=== PATIENT | male | born 1950 | race Caucasian/White ===

== ENCOUNTER 2019-10-30 06:29 | Emergency (ER) | payer MEDICARE, BC, OTHER ==
[~2019-10-30] VITALS: Ht 180.3 cm; Wt 97.4 kg
[2019-10-30 06:29] VITALS: BP 160/79
[~2019-10-30 06:29] MED LIST: FLOM0.4C39 PO; NORCOTAB PO; ONDA-1 PO
[2019-10-30] MEDS ORDERED: LIDOCAINE 1% MDV 20ML VIAL INFIL ONE (07:00)
--- NOTE | 2019-10-30 07:45 | REP ---
Clinical: Trauma. Foreign body. Technique: AP, lateral, bilateral oblique views of the right fourth digit. Findings: Osseous structures, joint spaces, and surrounding soft tissues appear normal. No obvious foreign body material identified. No obvious acute fracture or dislocation. Impression: No obvious foreign body. Electronically Signed by Medhat Myers MD 10/30/2019 07:36 A
== END 2019-10-30 08:07 | disposition home or self-care (01) ==
LOC: M ED 06:29
DX: S61.214A Laceration without foreign body of right ring finger without damage to nail, initial encounter (principal); W25.XXXA Contact with sharp glass, initial encounter; Y92.090 Kitchen in other non-institutional residence as the place of occurrence of the external cause; Y93.G1 Activity, food preparation and clean up; Y99.8 Other external cause status; I49.3 Ventricular premature depolarization; Z88.0 Allergy status to penicillin; Z91.041 Radiographic dye allergy status

== ENCOUNTER 2019-12-04 02:49 | Emergency (ER) | payer MEDICARE, BC, OTHER ==
[~2019-12-04] VITALS: Ht 180.3 cm; Wt 93.6 kg
[2019-12-04] MEDS ORDERED: ONDANSETRON 4MG/2ML VIAL IV ONE (03:15)
[2019-12-04] MEDS ORDERED: NS 1,000 ML IV ONE (03:30)
[2019-12-04] MEDS: KETOROLAC 30 MG/ML 1ML VIAL IV ONE ×4 (03:32→03:34)
[2019-12-04 03:37] LABS: BASO # 0.1 10^3/uL (0.0-0.2); BASO % 0.6 % (0.0-1.0); EOS # 0.4 10^3/uL (0.0-0.5); EOS % 4.7 % (0.0-3.0); HEMATOCRIT 46.9 % (42.0-52.0); HEMOGLOBIN 15.3 g/dl (13.5-17.5); LYMPH % 58.1 % (24.0-44.0); MEAN CORPUSCULAR HEMOGLOBIN 29.3 pg (27.0-33.0); MEAN CORPUSCULAR HGB CONC 32.6 g/dl (32.0-36.5); MEAN CORPUSCULAR VOLUME 89.8 fl (80.0-96.0); MONO # 0.8 10^3/uL (0.0-0.8); MONO % 8.8 % (0.0-5.0); NEUTROPHILS # 2.4 10^3/uL (1.5-8.5); NEUTROPHILS % 27.7 % (36.0-66.0); PLATELET COUNT, AUTOMATED 185 10^3/uL (150-450); RED BLOOD COUNT 5.22 10^6/uL (4.30-6.10); WHITE BLOOD COUNT 8.6 10^3/uL (4.0-10.0)
[2019-12-04] MEDS ORDERED: TAMSULOSIN 0.4 MG CAP PO ONE (03:45)
[2019-12-04] MEDS ORDERED: FLOM0.4C39 PO (03:53)
[2019-12-04] MEDS ORDERED: KETO10TAB PO (03:53)
--- NOTE | 2019-12-04 03:53 | REPVR ---
PROCEDURE INFORMATION: Exam: CT Abdomen And Pelvis Without Contrast Exam date and time: 12/04/2019 3:15 AM Age: 69 years old Clinical indication: Abdominal pain; Flank; Right; Additional info: Flank pain TECHNIQUE: Imaging protocol: Computed tomography of the abdomen and pelvis without contrast. Radiation optimization: All CT scans at this facility use at least one of these dose optimization techniques: automated exposure control; mA and/or kV adjustment per patient size (includes targeted exams where dose is matched to clinical indication); or iterative reconstruction. COMPARISON: RENAL US 02/24/2014 1:06 PM FINDINGS: Lungs: Dependent and compressive atelectasis at the bilateral lung bases. Atelectasis or scarring in the right lower lobe and lingula. Mediastinal space: Large hiatal hernia. Liver: Normal. No mass. Gallbladder and bile ducts: Normal. No calcified stones. No ductal dilation. Pancreas: Normal. No ductal dilation. Spleen: Normal. No splenomegaly. Adrenals: Normal. No mass. Kidneys and ureters: Mild right hydroureteronephrosis to the level a punctate 2 mm calculus at the right ureterovesicular junction. Nonobstructive left nephrolithiasis. Stomach and bowel: Left inguinal hernia containing nonobstructed loop of proximal sigmoid colon. Appendix: No evidence of appendicitis. Intraperitoneal space: Unremarkable. No free air. No significant fluid collection. Vasculature: Atherosclerotic disease of the abdominal aorta. Lymph nodes: Unremarkable. No enlarged lymph nodes. Bladder: Unremarkable as visualized. Reproductive: Enlarged prostate. Bones/joints: Multilevel degenerative disease and facet hypertrophy of the lumbar spine. Mild levoscoliosis. Soft tissues: Unremarkable. IMPRESSION: Mild right hydroureteronephrosis to the level a punctate 2 mm calculus at the right ureterovesicular junction. Electronically signed by: Kin Clinton On 12/04/2019 03:53:33 AM
[2019-12-04 03:59] LABS: ALBUMIN 3.7 GM/DL (3.2-5.2); ALT/SGPT 33 U/L (12-78); BILIRUBIN,DIRECT 0.1 MG/DL (0.0-0.2); BILIRUBIN,TOTAL 0.5 MG/DL (0.2-1.0); BLOOD UREA NITROGEN 15 MG/DL (7-18); CALCIUM LEVEL 8.8 MG/DL (8.8-10.2); CARBON DIOXIDE LEVEL 29 MEQ/L (21-32); CHLORIDE LEVEL 107 MEQ/L (98-107); CREATININE FOR GFR 1.16 MG/DL (0.70-1.30); GLOMERULAR FILTRATION RATE > 60.0 (>49); GLUCOSE, FASTING 107 MG/DL (70-100); LIPASE 175 U/L (73-393); POTASSIUM SERUM 3.9 MEQ/L (3.5-5.1); SODIUM LEVEL 143 MEQ/L (136-145); TOTAL PROTEIN 7.2 GM/DL (6.4-8.2)
[2019-12-04 04:03] VITALS: BP 126/63
== END 2019-12-04 04:14 | disposition home or self-care (01) ==
LOC: M ED 02:49
DX: N20.1 Calculus of ureter (principal)
CPT/HCPCS: 74176; 80048; 80076; 83690; 85025; 96361; 96374; 96375; 99284; J1885; J2405

== ENCOUNTER → 2020-12-16 | Outpatient (CLI) | payer MEDICARE, BC, OTHER ==
[~2020-12-16] MED LIST changes: +IBUP-1114 PO; +KETO10TAB PO
== END ==
LOC: M EKG 15:54
PROVIDERS: ATTEND Anesthesiology
DX: Z01.810 Encounter for preprocedural cardiovascular examination (principal); K44.9 Diaphragmatic hernia without obstruction or gangrene

== ENCOUNTER → 2020-12-23 | Outpatient (CLI) | payer MEDICARE, BC, OTHER | LOC: M LABSMTC 10:51 | PROVIDERS: ATTEND Anesthesiology | DX: Z01.812 Encounter for preprocedural laboratory examination (principal); Z20.822 Contact with and (suspected) exposure to COVID-19 ==

== ENCOUNTER 2020-12-27 07:53 | Day surgery (SDC) | payer MEDICARE, BC, OTHER ==
[~2020-12-27] VITALS: Ht 180.3 cm; Wt 94.3 kg
[~2020-12-27 07:53] MED LIST changes: +LIDOCAINE 1% MDV 20ML VIAL SQ PRN; +LR 1,000 ML IV ONE
[2020-12-27] MEDS ORDERED: ONDANSETRON 4MG/2ML VIAL As Ordered ONE (08:13)
[2020-12-27] MEDS ORDERED: ROCURONIUM BROMIDE 50 MG/5 ML VIAL As Ordered ONE ×2 (08:13→10:03)
[2020-12-27] MEDS ORDERED: fentaNYL 250 MCG/5 ML INJECTION (J3010) As Ordered ONE (08:13)
[2020-12-27] MEDS ORDERED: KETOROLAC 60MG 2ML VIAL As Ordered ONE (08:13)
[2020-12-27] MEDS ORDERED: dexameTHASONE 4 MG/ML 1ML VIAL (J1100 PER 1MG) As Ordered ONE (08:13)
[2020-12-27] MEDS ORDERED: LIDOCAINE 2% 100MG/5ML SDV (FOR ANES.) As Ordered ONE (08:13)
[2020-12-27] MEDS ORDERED: MIDAZOLAM INJ 2MG/2ML VIAL (J2250 PER 1MG) As Ordered ONE (08:13)
[2020-12-27] MEDS ORDERED: propofoL 200 MG/20 ML VIAL As Ordered ONE (08:14)
[2020-12-27] MEDS ORDERED: hydrALAZINE 20MG/ML 1ML VIAL (J0360 PER 20MG) As Ordered ONE (08:25)
[2020-12-27] MEDS ORDERED: BUPIVACAINE/EPIN 0.25% 30 ML VIAL As Ordered ONE (09:16)
[2020-12-27] MEDS ORDERED: ACETAMINOPHEN 1000MG 100ML IV BTL (OFIRMEV) (J0131 PER 10MG) As Ordered ONE ×2 (09:16→12:59)
[2020-12-27] MEDS: ceFAZolin SOD 1 GM in D5W MINI-BAG PLUS 50 ML IV SCH (09:46)
[2020-12-27] MEDS ORDERED: SUGAMMADEX SODIUM 500 MG/5 ML VIAL (BRIDION) As Ordered ONE (10:01)
[2020-12-27] MEDS ORDERED: NS 1,000 ML IV SCH (11:15)
[2020-12-27] MEDS ORDERED: LR 1,000 ML IV SCH (11:20)
[2020-12-27] MEDS ORDERED: PERCOCET 5MG/325MG TAB PO PRN (11:20)
[2020-12-27] MEDS ORDERED: ONDANSETRON 4MG/2ML VIAL IV PRN (11:20)
[2020-12-27] MEDS ORDERED: METOCLOPRAMIDE INJ 10MG/2ML VIAL (J2765 PER 1) IV PRN (11:20)
[2020-12-27] MEDS ORDERED: fentaNYL 100 MCG/2 ML INJECTION (J3010) IV PRN (11:20)
[2020-12-27 12:45] VITALS: BP 152/81
--- NOTE | 2020-12-27 18:18 | RO ---
OPERATIVE NOTE DATE OF OPERATION: 12/27/2020 PREOPERATIVE DIAGNOSIS: Recurrent left inguinal hernia. POSTOPERATIVE DIAGNOSIS: Recurrent left inguinal hernia (direct). PROCEDURE: Robotic-assisted laparoscopic left inguinal hernia repair with ProGrip mesh. SURGEON: James Currie Jr., MD [facility] COORDINATOR: HEAVENLY Dave who provided instrument placement, exchange and abdominal wall closure. ESTIMATED BLOOD LOSS: Minimal. FLUIDS: Crystalloid. ANESTHESIA: General endotracheal anesthesia BRIEF OPERATIVE SUMMARY: The patient was taken to the operating room and was given general anesthesia. After adequate anesthesia and preoperative antibiotics were given, the patient was prepped and draped in the usual sterile fashion. Next, a supraumbilical incision was made with a skin knife. Blunt dissection was carried down to fascia. The fascia was entered with Veress needle and insufflated to 15 mm pressure. The patient was placed in steep Trendelenburg position and the trocars were placed under direct visualization with the robot docked. The peritoneum was taken down on the left-hand side. I could see the edge of the mesh present. Also there some adhesions of the colon up against the left sidewall that I took down sharply. These were mostly just of the upper pole fat up against the sidewall. No bowel was grasped or dissected near. In any case, a peritoneal flap was created with monopolar cut scissors and eventually got down to the pubis and the back side of the pubis, Francesco's and the direct inguinal hernia was reduced nicely using some blunt and sharp dissection as well as electrocautery. The indirect area was cleared of hernias. However, there was some thickened scarring along this, the cord structures in this area associated with the previous hernia repair but eventually the peritoneum was nicely mobilized off this area as well and the ProGrip mesh was cut to the appropriate size, placed into the preperitoneal space, pressed into position and the peritoneum closed over the top of this using 3-0 V-Loc suture. The abdomen was desufflated under direct visualization after trocars were removed and all incisions closed with 4-0 Vicryl. Steri-Strips and a dry sterile dressing was applied. The patient was awakened, extubated and brought to the recovery room awake, alert, hemodynamically stable. Sponge and needle counts were correct x2.
== END 2020-12-27 12:50 | disposition home or self-care (01) ==
LOC: M SDC 07:53
PROVIDERS: ATTEND Surgery
DX: K40.91 Unilateral inguinal hernia, without obstruction or gangrene, recurrent (principal); K44.9 Diaphragmatic hernia without obstruction or gangrene; K58.9 Irritable bowel syndrome, unspecified; T88.4XXD Failed or difficult intubation, subsequent encounter; Z91.041 Radiographic dye allergy status; Z88.0 Allergy status to penicillin
CPT/HCPCS: 49651; C1781; J0131; J0690; J1100; J1885; J2250; J2405; J3010; S2900

== ENCOUNTER 2023-01-22 03:12 | Emergency (ER) | payer MEDICARE, BC, OTHER ==
[~2023-01-22] VITALS: Ht 180.3 cm; Wt 94.1 kg
[~2023-01-22 03:12] MED LIST changes: -LIDOCAINE 1% MDV 20ML VIAL SQ PRN; -LR 1,000 ML IV ONE
[2023-01-22 04:09] LABS: BASO % 0.5 % (0.0-1.0); EOS # 0.3 10^3/uL (0.0-0.5); EOS % 4.6 % (0.0-3.0); HEMATOCRIT 44.5 % (42.0-52.0); LYMPH # 3.5 10^3/uL (1.5-5.0); LYMPH % 52.9 % (24.0-44.0); MEAN CORPUSCULAR HGB CONC 33.7 g/dl (32.0-36.5); MONO # 0.5 10^3/uL (0.0-0.8); MONO % 8.1 % (2.0-8.0); NEUTROPHILS # 2.2 10^3/uL (1.5-8.5); NEUTROPHILS % 33.7 % (36.0-66.0); PLATELET COUNT, AUTOMATED 165 10^3/uL (150-450); WHITE BLOOD COUNT 6.5 10^3/uL (4.0-10.0)
[2023-01-22 04:23] LABS: INR 1.09; PROTHROMBIN TIME 13.8 SECONDS (12.5-14.5)
[2023-01-22 04:24] LABS: PARTIAL THROMBOPLASTIN TIME 27.1 SECONDS (24.8-34.2)
[2023-01-22 04:33] LABS: CK-MB VALUE MASS 1.4 NG/ML (<3.6)
[2023-01-22 04:35] LABS: BLOOD UREA NITROGEN 18 MG/DL (9-23); CALCIUM LEVEL 8.8 MG/DL (8.3-10.6); CARBON DIOXIDE LEVEL 26 MMOL/L (20-31); CHLORIDE LEVEL 107 MMOL/L (98-107); CREATININE FOR GFR 1.04 MG/DL (0.70-1.30); GLOMERULAR FILTRATION RATE > 60.0 (>42); GLUCOSE, FASTING 118 MG/DL (74-106); SODIUM LEVEL 142 MMOL/L (136-145)
[2023-01-22 04:37] LABS: CPK CREATINE PHOSPHOKINASE 159 U/L (46-171); MB/CK RELATIVE INDEX 0.88 (< OR =4)
[2023-01-22 08:58] VITALS: BP 168/94; TEMP 97.8; O2SAT 96
== END 2023-01-22 10:20 | disposition left against medical advice (07) ==
LOC: M ED 03:12
DX: R42 Dizziness and giddiness (principal); Z53.21 Procedure and treatment not carried out due to patient leaving prior to being seen by health care provider